=== PATIENT | female | born 1990 | race Caucasian/White ===

== ENCOUNTER 2019-12-08 11:33 | Emergency (ER) | payer OTHER, SELFPAY ==
[2019-12-08 11:44] VITALS: BP 136/65; PULSE 50; RESP 16; TEMP 36.3; O2SAT 99
--- NOTE | 2019-12-08 11:55 | ED.SKABFB ---
HPI - Skin/Abscess/Foreign Bdy General Chief complaint: Wound/Laceration Stated complaint: injury Time Seen by Provider: 12/08/19 11:50 Source: patient and RN notes reviewed Mode of arrival: ambulatory Limitations: no limitations History of Present Illness HPI narrative: Patient presents today complaint of an injury to her left third finger. States it was cut on the edge of a metal piece of a dog harness. The day after the injury, she noted redness and increased pain to the area. Reports no pain at rest, but this increases with movement or touching. She has been applying Neosporin and bandaid. She has not tried any medications for pain. MD complaint: discoloration Related Data Home Medications Medication Instructions Recorded Confirmed baclofen 10 mg PO DAILY 12/08/19 12/08/19 gabapentin 300 mg PO DAILY 12/08/19 12/08/19 Allergies Allergy/AdvReac Type Severity Reaction Status Date / Time citalopram Allergy Unknown Muscle Verified 05/22/17 08:34 Spasms zolpidem Allergy Unknown Muscle Verified 05/22/17 08:34 Spasms Review of Systems Review of Systems: Narrative: CONSTITUTIONAL: Denies body aches, fever, chills, or sweats. EYES: Denies visual changes, redness, or discharge. ENT: Denies rhinorrhea, congestion, sore throat, or otalgia. CARDIOVASCULAR: Denies chest pain, palpitations, or edema. RESPIRATORY: Denies cough or dyspnea. GASTROINTESTINAL: Denies abdominal pain, nausea, vomiting, or diarrhea. GENITOURINARY: Denies dysuria or hematuria. SKIN: Denies rash, itching, or wounds. MUSCULOSKELETAL: Denies back pain, or myalgia. + Redness and swelling to the left third finger NEUROLOGIC: Denies headache, numbness, tingling, or weakness. PSYCH: Denies depression or anxiety. [facility] Family History Family History (Updated 03/27/14 @ 07:13 by DOCTOR UNKNOWN) Father Family history of Parkinson's disease Acute myocardial infarction Other Cerebrovascular accident Hypertension Social History Social History Alcohol intake: current Comments At time of signature, I have reviewed and agree with nursing past medical, surgical, social and family history unless otherwise noted. Please see nursing chart for further information. There is no relevant family history pertinent to the presenting complaint Exam Narrative: Exam Narrative: GENERAL: Well-appearing, well-nourished, and in no acute distress. HEAD: Normocephalic, atraumatic. EYES: EOMI. No redness or drainage. Conjunctivae normal. ENT: Mucous membranes pink and moist. NECK: Normal AROM. CHEST: No respiratory distress. EXTREMITIES: Left 3rd finger: Small, superficial, healing flap to DIP with surrounding erythema and mild edema that does not extend past the PIP. No fluctuance or obvious abscess. Distal sensation intact. Capillary refill normal. Radial pulse normal. Full AROM of all fingers. SKIN: Warm, dry, no rash. Capillary refill normal. Normal skin turgor. NEURO: No focal deficits. Alert and oriented x3. Gait steady. PSYCH: Normal affect. No signs of depression or anxiety. Course Vital Signs Vital signs: Vital Signs Temperature 97.4 F L 12/08/19 11:44 Pulse Rate 50 L 12/08/19 11:44 Respiratory Rate 16 12/08/19 11:44 Blood Pressure 136/65 12/08/19 11:44 Pulse Oximetry 16 L 12/08/19 11:44 Temperature 97.4 F L 12/08/19 11:44 Pulse Rate 50 L 12/08/19 11:44 Respiratory Rate 16 12/08/19 11:44 Blood Pressure 136/65 12/08/19 11:44 Pulse Oximetry 16 L 12/08/19 11:44 Reviewed. Pt has been instructed to follow up with her PCP regarding her elevated blood pressure today. MDM - Skin/Abscess/Foreign Bdy Differential Diagnosis Differential diagnosis: Likely abscess of skin or subcutaneous tissue, cellulitis, impetigo and other Critical Care Time Critical Care Time Critical Care Time: No Discharge Plan Discharge Clinical Impression: Cellulitis of finger of left hand Patient Disposition:
[2019-12-08] MEDS: TETANUS,DIPHTHERIA,AC PERTUSSIS ADULT 0.5 ML (ADACEL) IM (12:00)
== END 2019-12-08 12:20 | disposition home or self-care (01) ==
PROVIDERS: Emergency Provider Nurse Practitioner; PCP Internal Medicine
DX: L03.012 Cellulitis of left finger (principal); Z23 Encounter for immunization
CPT/HCPCS: 90471; 90715; 99213; G0463

== ENCOUNTER 2020-07-10 13:15 | Outpatient (RCR) | payer OTHER, SELFPAY ==
--- NOTE | 2020-05-22 14:59 | PTOPEVAL ---
Thank you for referring Melida iFgueredo to [facility].? The patient is scheduled to be seen for therapy? 1 x/week for 6 weeks. Please review, sign, date and return this plan of care RJ. I agree with and certify that the following plan of care is medically necessary. Referring Physician Date Attending Provider: Saturnino Spence MD *PT Outpatient Evaluation Start: 05/22/20 12:38 Freq: Status: Active Protocol: Document 05/22/20 12:44 LIANNE (Rec: 05/22/20 13:38 LIANNE [id number]) Therapy Assessment Status Assessment Status Assessment Status Evaluation Outpatient Past Medical History Past Medical History Source of Past Medical History Patient,Recalled from Previous Visit, Confirmed with Patient /Family Musculoskeletal History Hx Back Injury Yes Hx Other Musculoskeletal Disorders Yes: Per pt. back nerve damage . Evaluation Information Problem Diagnosis knee pain Onset 2010 Additional Evaluation Detail ACL tear 04/2011, she hoped up and landed with her leg twisted. 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 Subjective Information She has been working at [employer] Query Text:As Reported By Patient/ since 03/19 with lifting and Family walking. She reports increased knee swelling. States her feet feel like they are breaking. She is no longer working due to her pain. States her back is the biggest problem. She reports her knee clicks when she walks. She does not perform a regular fitness or exercise program. She does not perform the HEP from previous therapy. Diagnostic Tests X-Rays For This Problem Yes Previous Treatments Previous Treatments For This Problem 2011 Pain Assessment Timing of Pain Assessment Timing of Pain Assessment Assessment Pain Scale Pain Scale Used Numeric (1 - 10) Self Report Pain Assessment Right Knee(s) Reported Pain Level 0 Pain Description Numbness,Radiating,Tightness Pain Frequency Chronic Lowest Pain Intensity 0 Greatest Pain Intensity 8 Pain Aggravating Factors Walking,Weight Bearing/ Standing Pain Behaviors Anxious,Guarding,Restless Pain Score Pain Score
--- NOTE | 2020-06-09 14:23 | PCPTNOTE ---
Patient called & cancelled scheduled appointment this date due to patient's request.
--- NOTE | 2020-06-11 11:14 | PCPTNOTE ---
Patient called & cancelled scheduled appointment this date due to having family issues (with her dad).
--- NOTE | 2020-06-23 13:33 | PCPTNOTE ---
Patient called & cancelled scheduled appointment this date due to being sick. Reschedule her re-eval for 07/06/20.
--- NOTE | 2020-07-06 12:44 | PCPTNOTE ---
Patient did not show up for scheduled appointment this date. Called pt who states she had the wrong day on her schedule. She has been rescheduled for Monday. Reviewed our cancellation policy with her.
--- NOTE | 2020-07-10 15:44 | PTOPEVAL ---
Thank you for referring Melida Figueredo to [facility].?Pt demonstrates limited progress with therapy services with limited attendance to scheduled therapy visits. She demonstrates minimal progress with objective measures and functional performance with daily task. She has been provided a HEP to address her leg strength, but home compliance is not consistent. She has reached maximal potential with skilled therapy services at this time. DC skilled PT services at this time. Please review, sign, date and return this plan of care RJ. I agree with and certify that the following plan of care is medically necessary. Referring Physician Date Attending Provider: Saturnino Spence MD *PT Outpatient Evaluation Start: 05/22/20 12:38 Freq: Status: Active Protocol: Document 07/10/20 13:24 CAP (Rec: 07/10/20 14:14 CAP [id number]) Therapy Assessment Status Assessment Status Assessment Status Re-evaluation/Discharge Note Evaluation Information Problem Diagnosis knee pain Onset 2010 Additional Evaluation Detail ACL tear 04/2011, she hoped up and landed with her leg twisted. 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 Subjective Information She did feel like her knee was Query Text:As Reported By Patient/ doing better until she jammed Family it. She reports increased knee pain and swelling after she jammed her knee when attempting to kick something. She reports it hurts behind the knee cap. She cont to have clicking of her knee when she walks. She is limited with her ability to squat. She reports her legs shake when performing sit<>stand or resistance exercises. She is performing her strengthening 2x/wk. Pain Assessment Timing of Pain Assessment Timing of Pain Assessment Re-assessment Pain Scale Pain Scale Used Numeric (1 - 10) Self Report Pain Assessment Right Knee(s) Reported Pain Level 6 Pain Description Stabbing Pain Frequency Chronic,Continuous Lowest Pain Intensity 1 Greatest Pain Intensity 10 Pain Aggravating Factors Bending,Exercise/Activity, Lifting,Prolonged Position, Stair Climbing,Walking,Weight Bearing/Standing Pain Behaviors
== END 2020-07-13 10:55 | disposition home or self-care (01) ==
LOC: ANHPT 13:15
PROVIDERS: PCP Internal Medicine; Visit Provider Orthopaedic Surgery
DX: M25.561 Pain in right knee (principal)
CPT/HCPCS: 97110; 97112; 97162

== ENCOUNTER 2020-07-28 14:44 | Outpatient (CLI) | payer OTHER, SELFPAY | END 2020-07-28 14:45 | disposition home or self-care (01) | PROVIDERS: PCP Internal Medicine; Visit Provider Obstetrics & Gynecology | DX: Z01.818 Encounter for other preprocedural examination (principal); N83.201 Unspecified ovarian cyst, right side | CPT/HCPCS: 36415; 86850; 86900; 86901 ==

== ENCOUNTER 2020-08-18 02:19 | Outpatient (CLI) | payer OTHER, SELFPAY ==
[2020-08-18 18:38] LABS: SARS-CoV-2 RNA PCR Negative
== END 2020-08-18 02:20 | disposition home or self-care (01) ==
LOC: ANHCOVIDDT 02:19
PROVIDERS: PCP Internal Medicine; Visit Provider Obstetrics & Gynecology
DX: Z01.812 Encounter for preprocedural laboratory examination (principal); Z20.822 Contact with and (suspected) exposure to COVID-19
CPT/HCPCS: C9803; U0003; U0005

== ENCOUNTER 2020-11-18 08:55 | Outpatient (CLI) | payer OTHER, SELFPAY ==
--- NOTE | 2020-11-18 11:30 | NEURO_ITS ---
Impression: # Complains of pain on the left side. # Normal nerve conduction study. # Normal needle/EMG exam. # Clinical correlation recommended. Nerve Conduction Studies Anti Sensory Summary Table Stim Site NR Peak (ms) P-T Amp (?V) Site1 Site2 Delta-P (ms) Dist (cm) Anjel (m/s) Left Median Anti Sensory (2-3nd Digit) Wrist 3.0 94.4 Wrist 2-3nd Digit 3.0 14.0 47 Wrist 2.9 94.4 Wrist 2-3nd Digit 3.0 14.0 47 Right Median Anti Sensory (2-3nd Digit) Wrist 3.0 92.1 Wrist 2-3nd Digit 3.0 14.0 47 Wrist 3.0 95.4 Wrist 2-3nd Digit 3.0 14.0 47 Left Radial Anti Sensory (Base 1st Digit) Wrist 1.9 54.0 Wrist Base 1st Digit 1.9 0.0 Right Radial Anti Sensory (Base 1st Digit) Wrist 2.5 25.2 Wrist Base 1st Digit 2.5 0.0 Left Ulnar Anti Sensory (5th Digit) Wrist 2.8 86.0 Wrist 5th Digit 2.8 14.0 50 Right Ulnar Anti Sensory (5th Digit) Wrist 2.5 65.5 Wrist 5th Digit 2.5 14.0 56 Motor Summary Table Stim Site NR Onset (ms) O-P Amp (mV) Site1 Site2 Delta-0 (ms) Dist (cm) Anjel (m/s) Left Median Motor (Abd Poll Brev) Wrist 2.7 5.8 Elbow Wrist 4.9 27.0 55 Elbow 7.6 3.7 Right Median Motor (Abd Poll Brev) Wrist 2.8 7.8 Elbow Wrist 4.2 26.0 62 Elbow 7.0 3.2 Left Ulnar Motor (Abd Dig Minimi) Wrist 2.3 9.3 A Elbow Wrist 4.4 26.0 59 A Elbow 6.7 8.2 Right Ulnar Motor (Abd Dig Minimi) Wrist 2.2 10.4 A Elbow Wrist 4.4 26.0 59 A Elbow 6.6 9.8 F Wave Studies NR F-Lat (ms) L-R F-Lat (ms) Left Median (Mrkrs) (Abd Poll Brev) 26.52 0.58 Right Median (Mrkrs) (Abd Poll Brev) 25.93 0.58 Left Ulnar (Mrkrs) (Abd Dig Min) 25.59 0.27 Right Ulnar (Mrkrs) (Abd Dig Min) 25.31 0.27 EMG Side Muscle Nerve Root Ins Act Fibs Amp Dur Recrt Comment Right 1stDorInt Ulnar C8-T1 Nml Nml Nml Nml Nml Right Ext Indicis Radial (Post Int) C7-8 Nml Nml Nml Nml Nml Right Ext Digitorum Radial (Post Int) C7-8 Nml Nml Nml Nml Nml Right BrachioRad Radial C5-6 Nml Nml Nml Nml Nml Right PronatorTeres Median C6-7 Nml Nml Nml Nml Nml Right Abd Poll Brev Median C8-T1 Nml Nml Nml Nml Nml Left 1stDorInt Ulnar C8-T1 Nml Nml Nml Nml Nml Left Ext Indicis Radial (Post Int) C7-8 Nml Nml Nml Nml Nml Left Ext Digitorum Radial (Post Int) C7-8 Nml Nml Nml Nml Nml Left BrachioRad Radial C5-6 Nml Nml Nml Nml Nml Left PronatorTeres Median C6-7 Nml Nml Nml Nml Nml Left Abd Poll Brev Median C8-T1 Nml Nml Nml Nml Nml MTDD
== END 2020-11-18 08:56 | disposition home or self-care (01) ==
PROVIDERS: PCP Internal Medicine; Visit Provider Internal Medicine
DX: G62.9 Polyneuropathy, unspecified (principal); R07.81 Pleurodynia
CPT/HCPCS: 95886; 95911

== ENCOUNTER 2024-10-11 14:45 | Outpatient (CLI) | payer OTHER, SELFPAY ==
--- NOTE | ~2024-10-11 | MR_ITS ---
MRI of the right knee Clinical history: Pain Technique: Coronal proton density and proton density-weighted images, sagittal proton-density and T2 fat-sat images, and axial proton-density fat-saturated images were acquired. Findings: There is complete tear of the proximal to midportion of the ACL. Posterior cruciate ligamen t is intact. Medial collateral ligament and the lateral collateral ligament complex are intact. Popli teus tendon is intact. There is complex tear of the posterior horn and body of the medial meniscus. No questionable horizont al tear anterior horn lateral meniscus versus severe intrasubstance degenerative signal. There is high-grade chondral malacia the medial compartment towards the medial joint line and along t he central to outer aspect of the medial femoral condyle. Articular cartilage is well preserved in th e lateral and patellofemoral compartments. Tricompartmental osteophyte formation is present. Extensor mechanism is intact. Moderate joint effusion present. No Chavez's cyst. Impression: Complete tear of the proximal to midportion of the ACL. Complex tearing of the posterior horn and body of the medial meniscus. Questionable horizontal tear anterior horn lateral meniscus versus severe intrasubstance degenerative signal. Moderate degenerative change of the medial compartment, as detailed above. Mild degenerative change o f the lateral and patellofemoral compartments. Moderate joint effusion. Reviewed, dictated and finalized at location M. Impression: Complete tear of the proximal to midportion of the ACL. Complex tearing of the posterior horn and body of the medial meniscus. Questionable horizontal tear anterior horn lateral meniscus versus severe intra substance degenerative signal. Moderate degenerative change of the medial compartment, as detailed above. Mild degenerative change of the lateral and patellofemoral compartments. Moderate joint effusion.
--- OUTSIDE RECORDS SUMMARY | 2024-10-11 14:54 | XMS_ITS | Clinical Summary ---
Author Organization [facility] Address [address] [place] [address] Care Team Providers Care Tablet Making Machine Operator Helper Name Role Phone Cathy Chamorro MD Primary Care Provider Allergies Active Allergy Reactions Criticality Noted Date Comments Citalopram Swelling High 08/25/2021 Codeine Hives Medium 01/17/2022 She gets hives if the dose is too high Ketorolac Hives Medium 08/04/2022 She gets hives if she has too high of a dose. Tramadol Headache Low 08/04/2022 Medications gabapentin (NEURONTIN) 300 mg capsuleIndicati ons:Paresthesia ,Neuropathy Take 1 capsule (300 mg total) by mouth 3 (three) times a day 90 capsule 3 08/16/2024 Active Active Problems Problem Noted Date Diagnosed Date Knee pain 05/15/2023 Irritable bowel syndrome 03/07/2022 Mood swings 03/07/2022 RONALDO (generalized anxiety disorder) 03/07/2022 Moderate episode of recurrent major depressive d isorder 03/07/2022 Anxiety 01/17/2022 Chest pain 08/25/2021 Smoker 08/25/2021 Encounters Date Type Department Care Team Description 08/16/2024 4:15 PM SYSTEMS SPEC Telemedicine [facility] Virtual Care [address] [place] [phone] Shy Garza MD Paresthesia (Primary Dx); Neuropathy from Last 3 Months Immunizations Immunization Administration Dates Next Due Tdap 07/31/2007 Surgical History Surgery Date Site/Laterality Comments CHOLECYSTECTOMY KIDNEY STONE SURGERY HERNIA REPAIR umbilical TUBAL LIGATION DILATION AND CURETTAGE OF UTERUS COLONOSCOPY Medical History Medical History Date Comments Anxiety Depression Raynaud disease Chest pain Kidney stone ACL injury tear Coccyxdynia Family History Medical History Relation Name Comments Parkinsonism Father Pathological gambling Father Back Pain Mother Depression Mother Hypertension Mother Relation Name Status Comments Father Mother Social History Tobacco Use Types Packs/Day Years Used Date Smoking Tobacco: Every Day Cigarettes Smokeless Tobacco: Never Tobacco Cessation:Ready to Q uit: No; Counseling Given: Yes PHQ-2 Answer Date Recorded PHQ-2 Total Score (If total score is 3 or more points, staff should administer the PHQ-9) 1 02/28/2024 Personal Safety Answer Date Recorded Getting School Help Needed Not on file 08/03 Comments No Sex and Gender Information Value Date Recorded Sex Assigned at Not on file Legal Sex Female 2:06 PM CDT Gender Identity Female 03/22/2022 2:00 PM CDT Sexual Orientation Straight 03/22/2022 2: 00 PM CDT Obstetrics History Para Term AB IAB SAB Ectopic Multiple Livin g Live Births 6 3 3 Date Outcome GA Total Labor Labor/2nd/3rd Weight Sex Type Anes PTL Araceli A1 A5 Name Clin Para Para Para AB AB AB Last Filed Vital Signs Vital Sign Reading Time Taken Comments Blood Pressure 108/80 02/28/2024 3:46 PM CDT Pulse 82 08/04/2022 10:44 AM SYSTEMS SPEC Temperature 36.8 C (98.2 F) 04/22/2022 7:17 PM CDT Respiratory Rate 16 04/22/2022 7:17 PM CDT Oxygen Saturation 100% 04/22/2022 7:17 PM CDT Inhaled Oxygen Concentration - - Weight 91 kg (200 lb 9.6 oz) 02/28/2024 3:46 PM CDT Height 162.6 cm (5' 4 ) 02/28/2024 3:46 PM CDT Body Mass Index 34.43 02/28/2024 3:46 PM CDT Plan of Treatment Health Maintenance Due Date Last Done Comments Cervical Cancer Screening 1989 Varicella Vaccines (1 of 2 - 13+ 2-dose series) 2002 Hepatitis B Screening 10/03/2007 Pneumococcal vaccine <65 (1 of 2 - PCV) 2008 DTaP/Tdap/Td Vaccine (2 - Td or Tdap) 07/31/2017 07/31/2007 Influenza Vaccine (#1) 2024 Depression Screening 02/27/2025 02/28/2024, 03/07/2022, 03/07/2022 Regular Well Visit/Exam 18-64 02/27/2025 02/28/2024 Hepatitis C Screening Completed 04/17/2024 HPV Vaccines Aged Out No longer eligi ble based on patient's age to complete this topic Procedures Procedure Name Priority Date/Time Associated Diagnosis Comments HEPATITIS C ANTIBODY Routine 04/17/2024 3:23 PM CDT Screening for STD (sexually transmitted disease) from Last 3 Months or Most Recently Relevant to Health Maintenance Results * Hepatitis C antibody Blood (04/17/2024 3:23 PM CDT) Hep C Ab Nonreactive Nonreactive Comment: Interpretive Data Nonreactive: Antibodies to HCV not detected. Does NOT exclude the possibility of recent exposure to HCV. Equivocal: Equivocal for HCV antibodies. Supplemental molecular testing will be automatically performed to determine infection status in accordance with current CDC screening recommendations. Reactive: Positive for HCV antibodies. This may represent current or past HCV infection. Supplemental molecular testing will be automatically performed to determine current infection status in accordance with current CDC screening recommendations. Interpretive data was last revised on 2019. Blood 04/17/2024 3:23 PM CDT 04/17/2024 9:24 PM CDT Fany Cano NP LAB MICROBIOLOGY - GENERAL ORDERABLES Final Result [facility] [id number] Department [place] [address] from Last 3 Months or Most Recently Relevant to Health Maintenance Insurance [facility] Care Teams Tablet Making Machine Operator Helper Relationship Specialty Start Date End Date Cathy Chamorro MD PCP - General Family Practice 02/17/22
--- OUTSIDE RECORDS SUMMARY | 2024-10-11 14:54 | XMS_ITS | Referral Summary ---
Author Organization [facility] Building [facility] Address [address] [place] [address] Care Team Providers Care Weblogic Developer Name Role Phone Cathy Chamorro MD Primary Care Provider Encounters Date Type Department Care Team Description 08/16/2024 4:15 PM [facility] DIRECTOR Telemedicine [facility] Virtual Care [address] [place] [phone] Shy Garza MD Paresthesia (Primary Dx); Neuropathy from Last 3 Months Allergies Active Allergy Reactions Criticality Noted Date [...] Anxiety 01/17/2022 Chest pain 08/25/2021 Smoker 08/25/2021 Immunizations Immunization Administration Dates Next Due Tdap 07/31/2007 Social History Tobacco Use Types Packs/Day Years [...] Orientation Straight 03/22/2022 2: 00 PM CDT Last Filed Vital Signs Vital Sign Reading Time Taken Comments Blood Pressure 108/80 02/28/2024 3:46 PM CDT Pulse 82 08/04/2022 10:44 AM [facility] DIRECTOR Temperature 36.8 C (98.2 F) 04/22/2022 7:17 PM CDT Respiratory Rate 16 04/22/2022 7:17 PM CDT Oxygen Saturation 100% 04/22/2022 7:17 PM CDT Inhaled Oxygen Concentration - - Weight 91 kg (200 lb 9.6 oz) 02/28/2024 3:46 PM CDT Height 162.6 cm (5' 4 ) 02/28/2024 3:46 PM CDT Body Mass Index 34.43 02/28/2024 3:46 PM CDT Plan of Treatment Not on file Procedures Procedure Name Priority Date/Time Associated Diagnosis [...] CDT 04/17/2024 9:24 PM CDT Fany Cano SENIOR TRAINER LAB MICROBIOLOGY - GENERAL ORDERABLES Final Result Performing Organization Address City/State/[place]IP [place] Phone Number LINDA [phone] [facility] Department [place] [address] from Last 3 Months or Most Recently Relevant to Health Maintenance Insurance [facility] Care Teams Weblogic Developer Relationship Specialty Start Date End Date Cathy Chamorro MD PCP - General Family Practice 02/17/22
--- OUTSIDE RECORDS SUMMARY | 2024-10-11 14:54 | XMS_ITS | CONTINUITY OF CARE DOCUMENT ---
Author Name arthur, arthur Address Unknown Organization [facility] Address [address] [place] [address] Phone [phone] Care Team Providers Care Tanning Drum Operator Name Role Phone Jan SINGH, Caridad Unavailable [phone] SCOT RADFORD MD Unavailable PROBLEMS Condition Status Date Provider Notes Anxiety active Kvng Ahmedzai Raynaud's syndrome active Kvng Ahmedzai Near syncope nl echo 02/18 active Caridad mejía MD Dizziness active Kvng Ahmedzai Palpitations Nl holter 02/18 active Caridad rodgers MD ENCOUNTERS Date Type Provider Location Encounter Diag nosis - In-person encounter Office Visit Caridad Montoya MD [facility] - In-person encounter Office Visit Caridad Montoya MD [facility] Palpitations Nl holter 02/18Near syncope nl echo 02/18 - In-person encounter Office Visit Caridad Montoya MD [facility] DizzinessNear syncope nl echo 02/18Raynaud's syndrome VITAL SIGNS Date Observation Value Provider Body Mass Index (Ratio) 28.65 kg/m2 Jorge Montoya MD blood pressure, cuff size large Leopoldo Mullen blood pressure, diastolic 100 mm[Hg] Leopoldo Mullen blood pressure, systolic 139 mm[Hg] Sukhdeep villegas Gruver pulse rate 84 /min Bria Gruver oxygen saturation, oximetry 99 % Bria Gruver respiratory rate E&M 18 /min [facility] weight E&M 172.2 [lb_av] [facility] height E&M 65 [in_i] [facility] Body Mass Index (Ratio) 28.95 kg/m2 Jorge Montoya MD blood pressure, cuff [facility] [place] blood pressure, diastolic 72 mm[Hg] Or ashok [place] blood pressure, systolic 146 mm[Hg] [facility] tye [place] oxygen saturation, oximetry 98 % Corina Boone pulse rate 81 /min Corina balbuena respiratory rate E&M 16 /min Serenity Boone height E&M 65 [in_i] Corina balbuena weight E&M 174 [lb_av] Corina balbuena ALLERGIES Allergy Name Onset Date Reaction Criticality Status CODEINE High Criticality active CELEXA High Criticality active HISTORY OF MEDICATION USE Medication Status Instructions Dates Provider Indications Com ments gabapentin 400 mg capsule active TAKE 1 CAPSULE BY MOUTH THREE TIMES DAILY DIRECTED Corina Boone SOCIAL HISTORY Date Observation Value Provider social history reviewed E&M revi ewed - no changes required Kvng Galvez social history E&M S moking History: P atient currently smokes every day. Kvng Galvez number of years as a smoker 11 a Bria Gruver smoking history, tot al pack/day 1.5 [facility] cigarette use yes [facility] smoking status Current every day smoker T jesus Sebas social history reviewed E&M revi ewed - no changes required Caridad Montoya MD social history E&M S moking History: P atmynor currently smokes every day. Kvng Ahmedzai number of years as a smoker 10 a Corina Boone smoking history, tot al pack/day 1 Corina Boone cigarette use yes Corina Vaz nd smoking status Current every day smoker M meghan Boone social history reviewed E&M revi ewed - no changes required Kvng Ahmedzai INSURANCE PROVIDERS Payer name Policy type / Coverage type [place] [employer] party [place] (2) Medicaid [id number] ADVANCE DIRECTIVES Name Date DISCUSSED - NO DECISION MADE TREATMENT PLAN Date Name Performer [id number],S, Kvng Ahmedza i [id number],S, Kvng Ahmedza i [id number],S, Kvng Ahmedza i [id number],S, Kvng Ahmedza i [id number],S, Kvng Ahmedza i [id number],S, Kvng Ahmedza i [id number],S, Kvng Ahmedza i [id number],S, Kvng Ahmedza i [id number],S, Kvng Ahmedza i Cardiology Kvng Ahmedzai Cardiology Kvng Ahmedzai Cardiology Kvng Ahmedzai Cardiology Kvng Ahmedzai Cardiology Kvng Ahmedzai Cardiology Kvng Ahmedzai Cardiology Kvng Ahmedzai Cardiology Kvng Ahmedzai Cardiology Kvng Ahmedzai Date Name Holter Monitor 48 hr IRON AND TOTAL IRON BINDING CAPACITY FERRITIN CBC (INCLUDES DIFF/P LT) MAGNESIUM TSH, free T4, total T3 Complete Echo HISTORY OF PROCEDURES Procedure Date Procedure Name Provider Procedure Notes S tatus EKG Caridad Montoya MD completed
== END 2024-10-11 14:46 | disposition home or self-care (01) ==
LOC: ANHIMG 14:48
PROVIDERS: PCP Family Medicine; Visit Provider Orthopaedic Surgery
DX: S83.511A Sprain of anterior cruciate ligament of right knee, initial encounter (principal); S83.231A Complex tear of medial meniscus, current injury, right knee, initial encounter; X58.XXXA Exposure to other specified factors, initial encounter; M17.11 Unilateral primary osteoarthritis, right knee; M25.461 Effusion, right knee
CPT/HCPCS: 73721